=== PATIENT | male | born 1990 | race Caucasian/White ===

== ENCOUNTER 2016-12-24 11:37 | Outpatient (CLI) | payer MEDICAID ==
[~2016-12-24 11:37] MED LIST: ALB4 NEB; AMYL-30 PO; CHOL20005 PO; FLUT1DSK2 IH; LANS30EC3 PO; TOBR28CA IH; [UNRECOGNIZED DRUG - CODE] IH; [UNRECOGNIZED DRUG - CODE] IH; [UNRECOGNIZED DRUG - CODE] PO
== END 2016-12-24 20:01 | disposition home or self-care (01) ==
LOC: MRD 11:37
PROVIDERS: ATTEND Neuromusculoskeletal Medicine, Sports Medicine
DX: S82.141D Displaced bicondylar fracture of right tibia, subsequent encounter for closed fracture with routine healing (principal); M25.461 Effusion, right knee; X58.XXXD Exposure to other specified factors, subsequent encounter
CPT/HCPCS: 73562

== ENCOUNTER 2017-01-22 08:36 | Outpatient (CLI) | payer MEDICAID ==
[~2017-01-22 08:36] MED LIST changes: -CHOL20005 PO; +CHOL200072 PO
== END 2017-01-22 19:52 | disposition home or self-care (01) ==
LOC: MRD 08:36
PROVIDERS: ATTEND Neuromusculoskeletal Medicine, Sports Medicine
DX: S82.54XD Nondisplaced fracture of medial malleolus of right tibia, subsequent encounter for closed fracture with routine healing (principal); M25.461 Effusion, right knee; X58.XXXD Exposure to other specified factors, subsequent encounter
CPT/HCPCS: 73562

== ENCOUNTER 2017-01-29 07:47 | Emergency (ER) | payer MEDICAID ==
[~2017-01-29] VITALS: Ht 175.3 cm; Wt 69.6 kg
[2017-01-29 07:50] VITALS: BP 133/94
--- NOTE | 2017-01-29 07:50 | NUR ---
Patient ambulated to bed 07.
--- NOTE | 2017-01-29 07:50 | NUR ---
bed 11*
--- NOTE | 2017-01-29 08:00 | NUR ---
26M BIB SELF C/O 12/16 "SHARP" NON RADIATING RT FOOT PAIN X 2 DAYS; SWELLING AND ECCHYMOSIS NOTED TO RIGHT FOOT; PT DENIES ANY RECENT INJURY OR FALLS; PT STATES HE "REALLY DOESN'T WHAT HAPPENED...I MAYBE ROLLED ON MY TOES THE WRONG WAY"; CMS AND SKIN INTACT; PT IS AOX4; RR ARE EVEN AND UNLABORED; ER MD AWARE OF PT STATUS; ALL NEEDS MET AT THIS TIME; WILL CONTINUE TO MONITOR
--- NOTE | 2017-01-29 08:03 | NUR ---
Dr. Gonzalez evaluating patient at bedside.
[2017-01-29] MEDS ORDERED: HYDROcodone/APAP 5/325 MG 1 TAB TAB PO ONE (08:10)
[2017-01-29] MEDS ORDERED: IBUPROFEN 400 MG TAB PO ONE (08:10)
--- NOTE | 2017-01-29 08:11 | NUR ---
XRAY BY BEDSIDE
[2017-01-29 09:04] VITALS: BP 128/70
--- NOTE | 2017-01-29 09:04 | NUR ---
Patient discharged with v/s stable. Written and verbal after care instructions given and explained. Patient alert, oriented and verbalized understanding of instructions. Ambulatory with steady gait. All questions addressed prior to discharge. ID band removed. Patient advised to follow up with PMD. Rx of [place] 5 and Naprosyn given. Patient educated on indication of medication including possible reaction and side effects. Opportunity to ask questions provided and answered.
== END 2017-01-29 09:04 | disposition home or self-care (01) ==
LOC: MED 07:47
DX: S92.334A Nondisplaced fracture of third metatarsal bone, right foot, initial encounter for closed fracture (principal); Z79.899 Other long term (current) drug therapy; X58.XXXA Exposure to other specified factors, initial encounter; Y92.89 Other specified places as the place of occurrence of the external cause; Y93.89 Activity, other specified; Y99.8 Other external cause status
CPT/HCPCS: 29515; 73630; 99284

== ENCOUNTER 2017-04-25 09:51 | Outpatient (CLI) | payer MEDICAID | END 2017-04-25 20:39 | disposition home or self-care (01) | LOC: MRD 09:51 | PROVIDERS: ATTEND Neuromusculoskeletal Medicine, Sports Medicine | DX: S92.331D Displaced fracture of third metatarsal bone, right foot, subsequent encounter for fracture with routine healing (principal); X58.XXXD Exposure to other specified factors, subsequent encounter | CPT/HCPCS: 73630 ==

== ENCOUNTER 2018-03-05 13:52 | Emergency (ER) | payer MEDICAID ==
[~2018-03-05] VITALS: Ht 175.3 cm; Wt 68.9 kg
[~2018-03-05 13:52] MED LIST changes: -ALB4 NEB; +ALBU4TAB NEB
[2018-03-05 14:10] VITALS: BP 139/104
[2018-03-05] MEDS: KETOROLAC 60 MG/2 ML VIAL IM ONE (15:51)
[2018-03-05] MEDS: fentaNYL 0.05 MG/ML VIAL IM ONE (16:41)
[2018-03-05 17:00] VITALS: BP 132/80
== END 2018-03-05 17:00 | disposition home or self-care (01) ==
LOC: MED 13:52
DX: J06.9 Acute upper respiratory infection, unspecified (principal); E84.9 Cystic fibrosis, unspecified; Z79.899 Other long term (current) drug therapy
CPT/HCPCS: 71101; 96372; 99283; J1885; J3010

== ENCOUNTER 2018-05-16 19:28 | Emergency (ER) | payer MEDICAID, OTHER ==
[~2018-05-16] VITALS: Ht 175.3 cm; Wt 72.6 kg
[2018-05-16 19:32] VITALS: BP 117/90
--- NOTE | 2018-05-16 19:32 | NUR ---
TO BED # 9 AMBULATORY, REPORT GIVEN TO MARIO IQBAL
[2018-05-16] MEDS ORDERED: NACL 0.9% 1,000 ML IV ONE (19:40)
--- NOTE | 2018-05-16 19:40 | NUR ---
Note undone in EDM - 05/16/18 at 2046 by [facility] 27/M PRESENTS TO ED, C/O LUMP ON R UPPER MID BACK, NOTICED THIS AM, PT REPORTS +SLIGHT TENDERNESS, -REDNESS, -BRUISING. PT REPORTS PRODUCTIVE COUGH, INTERMITTENT HEMOPTYSIS, PLEURITIC CP, X1 WEEK. PT AOX4, GCS 15, SPO2 83% ON RA, PLACED ON O2 4L NC, NOW SPO2 94%, RR 19 EVEN AND UNLABORED. HX CYSTIC FIBROSIS, R LUNG LOBECTOMY, 9 SINUS SURGERIES
--- NOTE | 2018-05-16 19:40 | NUR ---
27/M PRESENTS TO ED, C/O LUMP ON R UPPER MID BACK, NOTICED THIS AM, PT REPORTS +SLIGHT TENDERNESS, -REDNESS, -BRUISING, R LUNG LOBECTOMY SCAR NOTED. PT REPORTS PRODUCTIVE COUGH, INTERMITTENT HEMOPTYSIS, PLEURITIC CP, X1 WEEK. PT AOX4, GCS 15, SPO2 83% ON RA, PLACED ON O2 4L NC, NOW SPO2 94%, RR 19 EVEN AND UNLABORED. HX CYSTIC FIBROSIS, R LUNG LOBECTOMY, 9 SINUS SURGERIES
--- NOTE | 2018-05-16 19:54 | NUR ---
Dr. Venegas evaluating patient at bedside.
[2018-05-16] MEDS ORDERED: ALBUTEROL SULFATE/IPRATROPIU 3 ML SOL IH ONE ×2 (20:00→21:55)
[2018-05-16] MEDS ORDERED: ALBUTEROL 0.083% 2.5 MG/3 ML NEBU INH ONE ×2 (20:00→21:55)
[2018-05-16] MEDS ORDERED: predniSONE 20 MG TAB PO ONE (20:00)
--- NOTE | 2018-05-16 20:05 | NUR ---
dairy technologist at bedside.
--- NOTE | 2018-05-16 20:07 | NUR ---
Breathing treatment administered at bedside by respiratory therapist.
[2018-05-16] MEDS ORDERED: MORPHINE SULFATE 4 MG/ML SYR IVP ONE ×2 (20:20→21:40)
--- NOTE | 2018-05-16 21:08 | NUR ---
Patient returned from CT scan. RN re-evaluating patient at bedside.
--- NOTE | 2018-05-16 21:59 | NUR ---
Secondary breathing treatment administered at bedside by respiratory therapist.
--- NOTE | 2018-05-16 22:17 | NUR ---
Dr. Venegas evaluating patient at bedside.
[2018-05-16 22:45] VITALS: BP 151/87
--- NOTE | 2018-05-16 22:45 | NUR ---
Patient discharged with v/s stable. Written and verbal after care instructions given and explained. Patient alert, oriented and verbalized understanding of instructions. Ambulatory with steady gait. All questions addressed prior to discharge. ID band removed. Patient advised to follow up with PMD. Rx of Prednisone, Bactrim DS, and [place] given. Patient educated on indication of medication including possible reaction and side effects. Opportunity to ask questions provided and answered.
== END 2018-05-16 22:45 | disposition home or self-care (01) ==
LOC: MED 19:28
DX: R22.2 Localized swelling, mass and lump, trunk (principal); J18.9 Pneumonia, unspecified organism; E84.9 Cystic fibrosis, unspecified; Z79.899 Other long term (current) drug therapy
CPT/HCPCS: 71045; 71250; 94640; 96374; 96376; 99284; J2270; J7030; J7512; J7613; J7620; Q0092

== ENCOUNTER 2018-06-18 15:49 | Inpatient (IN) | payer OTHER ==
[~2018-06-18] VITALS: Ht 175.3 cm; Wt 68.9 kg
[2018-06-18 16:03] VITALS: BP 117/75
--- NOTE | 2018-06-18 16:05 | NUR ---
PATIENT PRESENTS TO ED WITH THE CHIEF C/O SOB FOR 8 DAYS. PT IS TACHYCARDIC. KEPT PT ON MONITOR. REPORTED DIFFICULTY BREATHING, SPO2 NOTED 88%. PLACED PT ON O2 AT 2 LTR VIA NC. HOB ELEVATED. + DRY COUGH. LUNGS CLEAR. DENIES N/V/D. SKIN IS PINK/WARM/DRY. AAOX4 WITH EVEN AND STEADY GAIT. HR EVEN AND REGULAR. PT REPORTS FEVER 3 DAYS AGO, TOOK IBUPROFEN. AFEBRILE AT THIS TIME. PATIENT STATES GENERALIZED PAIN OF 8/10 AT THIS TIME. VSS. PATIENT POSITIONED FOR COMFORT. BEDRAILS UP X2. BED DOWN. ER MD MADE AWARE OF PT STATUS.
--- NOTE | 2018-06-18 16:05 | NUR ---
PATIENT AMBULATED TO BED 2.
[2018-06-18] MEDS ORDERED: ALBUTEROL 0.083% 2.5 MG/3 ML NEBU INH ONE (16:20)
[2018-06-18] MEDS ORDERED: IPRATROPIUM 0.02% 0.5 MG/2.5 ML NEBU INH ONE (16:20)
[2018-06-18] MEDS ORDERED: NACL 0.9% 500 ML IV SCH (16:20)
[2018-06-18] MEDS ORDERED: NACL 0.9% 500 ML IV ONE (16:45)
[2018-06-18 16:49] LABS: BASOPHILS % (AUTO) 0.3 % (0.0-2.0); EOSINOPHILS # (AUTO) 0.7 K/uL (0-0.4); HEMATOCRIT 35.7 % (36-52); HEMOGLOBIN 11.7 g/dL (12.0-18.0); LYMPHOCYTES # (AUTO) 1.6 K/uL (2.0-11.5); LYMPHOCYTES % (AUTO) 12.8 % (20.5-51.1); MEAN CORPUSCULAR HEMOGLOBIN 27 pg (27-31); MEAN CORPUSCULAR HGB CONC 33 g/dL (33-37); MEAN CORPUSCULAR VOLUME 83.7 fL (80-94); MONOCYTES # (AUTO) 1.1 K/uL (0.8-1.0); NEUTROPHILS # (AUTO) 8.9 K/uL (1.8-7.7); NEUTROPHILS % (AUTO) 71.9 % (42.2-75.2); PLATELET COUNT (AUTO) 367 K/uL (140-450); RED BLOOD CELL COUNT(AUTO) 4.27 MIL/uL (4.20-6.10); RED CELL DISTRIBUTION WIDTH 13.9 % (11.6-13.7); WHITE BLOOD COUNT (AUTO) 12.4 K/uL (4.8-10.8)
[2018-06-18 17:09] LABS: APPEARANCE,URINE CLEAR (CLEAR); BILIRUBIN,URINE NEGATIVE (NEGATIVE); BLOOD, URINE NEGATIVE (NEGATIVE); COLOR,URINE YELLOW (YELLOW); LEUKOCYTE ESTERASE ,URINE NEGATIVE (NEGATIVE); NITRITE, URINE NEGATIVE (NEGATIVE); PH,URINE 6.5 (5.0-9.0); UGLUCOSE 3+ (NEGATIVE)
[2018-06-18 17:12] LABS: CARBON DIOXIDE 29.5 mmol/L (21-32); CREATININE 1.1 mg/dL (0.7-1.3); POTASSIUM 3.5 mmol/L (3.5-5.1); TOTAL BILIRUBIN 0.4 mg/dL (0.0-1.0)
[2018-06-18] MEDS ORDERED: KETOROLAC 30 MG/ML VIAL IVP ONE (17:20)
[2018-06-18 17:48] LABS: PROTHROMBIN TIME 9.9 secs (10.8-13.4)
--- NOTE | 2018-06-18 17:54 | NUR ---
BLOOD DRAWN FOR ABG.
[2018-06-18] MEDS ORDERED: ONDANSETRON 4 MG/2 ML VIAL IVP ONE (18:15)
[2018-06-18] MEDS ORDERED: NACL 0.9% 1,000 ML IV ONE (18:15)
[2018-06-18] MEDS ORDERED: MORPHINE SULFATE 4 MG/ML SYR IVP ONE (18:15)
[2018-06-18] MEDS: NACL 0.9% 1,000 ML IV SCH (18:22)
[2018-06-18] MEDS ORDERED: PIPERACILLIN/TAZOBACTAM 3.375 GM in DEXTROSE 5% 50 ML IV ONE (18:25)
[2018-06-18] MEDS ORDERED: ZOLPIDEM 5 MG TAB PO PRN (18:25)
[2018-06-18] MEDS ORDERED: INSULIN REGULAR, HUMAN 100 UNIT/ML VIAL SUBQ ONE (18:25)
[2018-06-18] MEDS ORDERED: HYDROcodone/APAP 5/325 MG 1 TAB TAB PO PRN (18:25)
[2018-06-18] MEDS ORDERED: ACETAMINOPHEN 325 MG TAB PO PRN (18:25)
[2018-06-18] MEDS ORDERED: INSULIN REGULAR, HUMAN 100 UNIT in NACL 0.9% 100 ML IV SCH ×2 (18:25)
[2018-06-18] MEDS ORDERED: MAG SULF 2000 MG/WATER PREMIX 50 ML IV PRN (18:25)
[2018-06-18] MEDS ORDERED: ONDANSETRON 4 MG/2 ML VIAL IVP PRN (18:25)
[2018-06-18] MEDS ORDERED: KCL 20 MEQ/WATER INJ PREMIX 200 ML IV PRN (18:25)
[2018-06-18] MEDS: BLOOD GLUCOSE MONITORING 1 DEV DEV FS SCH ×6 (18:25→23:32)
[2018-06-18] MEDS ORDERED: QUET100T PO (18:34)
[2018-06-18] MEDS ORDERED: AZIT250T4 PO (18:34)
[2018-06-18] MEDS ORDERED: FLUT1POW3 IH (18:34)
[2018-06-18] MEDS ORDERED: GABA400C PO (18:34)
[2018-06-18] MEDS ORDERED: PIPERACILLIN/TAZOBACTAM 3.375 GM VIAL IV ONE (18:47)
[2018-06-18 18:55] VITALS: BP 121/78
--- NOTE | 2018-06-18 18:55 | NUR ---
ADMITTED FROM ER THIS 27 YR OLD WHITE MALE PER [facility]. BY ER NURSES WITH CC OF WEAKNESS, FREQ. URINATION, THIRST AND PROBLEMS WITH HIS VISION. AWAKE,ALERT AND ORIENTED. IV 0.9 NS BOLUS INFUSING VIA RT AC IV SITE. G 20. BURNS WELL. HAND GRASPS EQUAL. DENIES ANY SOB. 02 AT 2 L/MIN/NC. PLACED ON MEN'S GOLF COACH, ST HR 112/MIN. WITHOUT ECTOPICS.
--- NOTE | 2018-06-18 18:59 | NUR ---
PT TRANSFERRED TO ICU BED 5 VIA GURNEY ON STABLE CONDITION. BELONGINGS TAKEN WITH PT. REPORT GIVEN TO JANUSZ.
--- NOTE | 2018-06-18 19:30 | NUR ---
RECEIVED BEDSIDE REPORT FROM MORNING NURSE. PATIENT AAO X 4, NO FEVER. NO ACUTE DISTRESS NOTED. BILATERAL LUNGS SOUND WHEEZING WITH NON PRODUCTIVE INTERMITTENT COUGH NOTED. SR ON THE MONITOR WITH HR 109 NOTED. ACTIVE BOWEL SOUND FROM ALL 4QUADS. PERIPHERAL LINE TO LEFT AC 20G WITH NS 80ML/HR AND INTACT AND PATENT. SKIN IS WARM TO TOUCH WITH INTACT. HOB ELEVATED, BED IN LOW POSITION. CALL LIGHT WITHIN REACH. WILL CONTINUE TO MONITOR.
--- NOTE | 2018-06-18 19:32 | NUR ---
REPORT GIVEN TO [facility] RN FOR CONTINUITY OF CARE.
[2018-06-18 20:00] VITALS: BP 125/82
--- NOTE | 2018-06-18 20:00 | NUR ---
STARTED INSULIN DRIP ORDERED, BS [address] MCCABE AND RECEIVED ORDER TO INCREASE INSULIN TO 8UNITS/HR AND CARRIED OUT. WILL CONTINUE TO MONITOR.
[2018-06-18] MEDS ORDERED: ALBUTEROL SULFATE/IPRATROPIU 3 ML SOL IH ONE (20:38)
[2018-06-18] MEDS ORDERED: ALBUTEROL 0.083% 2.5 MG/3 ML NEBU INH PRN (20:45)
[2018-06-18] MEDS ORDERED: DORNASE ALFA 2.5 MG IH SCH (21:00)
[2018-06-18] MEDS: CHOLECALCIFEROL 1,000 IU TAB PO SCH (21:00)
[2018-06-18] MEDS ORDERED: NON-FORMULARY ITEM (Cholecalciferol (Vitamin D3) (Vitamin D3) 2,000 IU) PO SCH (21:00)
[2018-06-18] MEDS ORDERED: [UNRECOGNIZED DRUG - MIXTURE] PO SCH (21:00)
--- NOTE | 2018-06-18 21:00 | NUR ---
SPOKE WITH AND RECEIVED BREATHING TREATMENT AND MORPHINE FOR PAIN ORDERS. NO ACUTE DISTRESS NOTED. WILL CONTINUE TO MONITOR.
[2018-06-18 21:01] LABS: ANION GAP 12.2 (8-16); CARBON DIOXIDE 33.2 mmol/L (21-32); CREATININE 1.1 mg/dL (0.7-1.3); POTASSIUM 3.4 mmol/L (3.5-5.1)
[2018-06-18 21:05] LABS: MAGNESIUM 1.6 mg/dL (1.8-2.4); PHOSPHORUS 2.4 mg/dL (2.5-4.9)
[2018-06-18] MEDS: ALBUTEROL SULFATE/IPRATROPIU 3 ML SOL IH PRN (21:21)
[2018-06-18] MEDS: MORPHINE SULFATE 2 MG/ML SYR IVP PRN (21:36)
[2018-06-18] MEDS: LANSOPRAZOLE 30 MG CAPDR PO SCH (21:36)
[2018-06-18 22:00] VITALS: BP 133/93
[2018-06-19] VITALS (10 sets, daily range): BP systolic 105–128; BP diastolic 60–83
--- NOTE | 2018-06-19 | NUR ---
PATIENT IN ASLEEP, AROUSABLE TO VOICE. NO ACUTE DISTRESS NOTED. INTERMITTENT COUGHING NOTED. DENIES PAIN AT THIS TIME. WILL CONTINUE TO MONITOR.
[2018-06-19] MEDS: ALBUTEROL SULFATE/IPRATROPIU 3 ML SOL IH PRN ×3 (00:10→20:09)
[2018-06-19 00:27] LABS: ANION GAP 13.8 (8-16); CARBON DIOXIDE 30.2 mmol/L (21-32); CREATININE 0.8 mg/dL (0.7-1.3)
[2018-06-19] MEDS: BLOOD GLUCOSE MONITORING 1 DEV DEV FS SCH ×18 (00:28→21:05)
[2018-06-19] MEDS: PIPER/TAZO 3.375GM/D5W PREMIX 50 ML IV SCH ×5 (00:28→23:22)
[2018-06-19 00:30] LABS: MAGNESIUM 1.6 mg/dL (1.8-2.4); PHOSPHORUS 2.3 mg/dL (2.5-4.9)
[2018-06-19] MEDS: MORPHINE SULFATE 2 MG/ML SYR IVP PRN ×6 (01:51→22:08)
--- NOTE | 2018-06-19 02:30 | NUR ---
NO ACUTE DISTRESS NOTED. PATIENT IN ASLEEP. ST ON THE MONITOR WITH 100'S. DENIES PAIN. WILL CONTINUE TO MONITOR.
--- NOTE | 2018-06-19 05:00 | NUR ---
PATIENT IN ASLEEP, AROUSABLE TO VOICE. NO ACUTE DISTRESS. DENIES PAIN. SR WITH HR 99 NOTED. ON INSULIN DRIP WITH 2UNITS/HR AND NS 80ML.HR. WILL CONTINUE TO MONITOR.
[2018-06-19 05:45] LABS: ALBUMIN 2.5 g/dL (3.4-5.0); ANION GAP 10.6 (8-16); CARBON DIOXIDE 33.3 mmol/L (21-32); CREATININE 0.8 mg/dL (0.7-1.3); MAGNESIUM 1.3 mg/dL (1.8-2.4); TOTAL BILIRUBIN 0.2 mg/dL (0.0-1.0)
[2018-06-19 06:40] LABS: BASOPHILS # (AUTO) 0.1 K/uL (0.00-0.22); BASOPHILS % (AUTO) 0.5 % (0.0-2.0); EOSINOPHILS # (AUTO) 1.1 K/uL (0-0.4); HEMATOCRIT 32.6 % (36-52); HEMOGLOBIN 10.8 g/dL (12.0-18.0); LYMPHOCYTES # (AUTO) 2.2 K/uL (2.0-11.5); LYMPHOCYTES % (AUTO) 17.6 % (20.5-51.1); MEAN CORPUSCULAR HEMOGLOBIN 28 pg (27-31); MEAN CORPUSCULAR HGB CONC 33 g/dL (33-37); MONOCYTES # (AUTO) 1.2 K/uL (0.8-1.0); MONOCYTES % (AUTO) 9.6 % (1.7-9.3); NEUTROPHILS # (AUTO) 7.7 K/uL (1.8-7.7); NEUTROPHILS % (AUTO) 63.3 % (42.2-75.2); PLATELET COUNT (AUTO) 371 K/uL (140-450); RED BLOOD CELL COUNT(AUTO) 3.93 MIL/uL (4.20-6.10); WHITE BLOOD COUNT (AUTO) 12.2 K/uL (4.8-10.8)
[2018-06-19 06:50] LABS: POTASSIUM 2.9 mmol/L (3.5-5.1)
[2018-06-19] MEDS: BUDESONIDE 0.5 MG/2 ML NEBU INH SCH ×2 (07:08→20:24)
[2018-06-19] MEDS ORDERED: LIPASE PO SCH (07:30)
[2018-06-19] MEDS ORDERED: PROTEASE PO SCH (07:30)
[2018-06-19] MEDS ORDERED: AMYLASE PO SCH (07:30)
--- NOTE | 2018-06-19 07:30 | NUR ---
OBTAINED REPORT FROM NURSE RN BSN RN AT BEDSIDE, PT IS AAOX4, ABLE TO FOLLOW COMMANDS AND MAKE NEEDS KNOWN, VSS, C/O LOWER BACK PAIN 5/10, TOLERABLE, NO S/S OF DISTRESS, CRACKLES LUNG SOUNDS ROHAN. ON O2 AT 2L VIA NC, O2 94%, DENIES CHEST PAIN, ST ON SECURITY ASSISTANT, SOFT ABDOMEN WITH ACTIVE BOWEL SOUNDS, CONTINENT WITH B&B, SKIN IS WARM AND DRY TO TOUCH, ABLE TO MOVE ALL EXTREMITIES, IV TO LEFT FOREARM 20GA, RUNNING NS AT 80ML/HR. HOB ELEVATED TO 30 DEGREES, POSITION CHANGED FOR COMFORT, CALL LIGHT WITHIN REACH, SAFETY MEASURES IN PLACE, WILL CONTINUE TO MONITOR.
[2018-06-19] MEDS ORDERED: SODIUM PHOSPHATE 15 MMOLE in NACL 0.9% 250 ML IV PRN (07:50)
--- NOTE | 2018-06-19 08:13 | NUR ---
PATIENT HAS BEEN SCREENED AND CATEGORIZED HIGH NUTRITION RISK. PATIENT WILL BE SEEN WITHIN 1-2 DAYS OF ADMISSION. 06/19/18-06/20/[address]
[2018-06-19] MEDS: CHOLECALCIFEROL 1,000 IU TAB PO SCH ×2 (08:17→20:34)
[2018-06-19] MEDS: AMYLASE/LIPASE/PROTEASE 1 CAPDR PO SCH ×3 (08:17→16:38)
[2018-06-19] MEDS: DOCUSATE SODIUM 100 MG GELCAP PO SCH (08:17)
[2018-06-19] MEDS: LANSOPRAZOLE 30 MG CAPDR PO SCH ×2 (08:18→20:34)
[2018-06-19] MEDS: NACL 0.9% 1,000 ML IV SCH ×2 (08:20→19:22)
--- NOTE | 2018-06-19 09:00 | NUR ---
SCHEDULED MEDICATION GIVEN, PT TOLERATED WELL.
--- NOTE | 2018-06-19 10:00 | NUR ---
NO CHANGE OF CONDITION AT THIS TIME, VSS, C/O LOWER BACK PAIN, WILL MEDICATED.
[2018-06-19] MEDS: LEVOFLOXACIN 750 MG/D5W PREMIX 150 ML IV SCH (10:03)
[2018-06-19 10:14] LABS: ANION GAP 11.3 (8-16); CARBON DIOXIDE 30.8 mmol/L (21-32); CREATININE 0.7 mg/dL (0.7-1.3); POTASSIUM 3.1 mmol/L (3.5-5.1)
--- NOTE | 2018-06-19 10:30 | NUR ---
SPUTUM COLLECTED, AND INFULENZA A&B COLLECTED, SENT TO LAB.
--- NOTE | 2018-06-19 11:30 | NUR ---
PAGED DR. MAHONEY, PT STATED WOULD LIKE TO TRANSFER TO [facility] DUE TO ALL HIS MEDICAL RECORDS WAS IN THERE, AND GAVE US A NUMBER TO CALL FOR HIS HISTORY [phone]. DR. MAHONEY CALLED BACK AND STATED WILL BE HERE TALK TO THE PT.
--- NOTE | 2018-06-19 12:00 | NUR ---
PT IS RESTING IN BED, NO S/S OF DISTRESS, VSS, DENIES PAIN.
--- NOTE | 2018-06-19 12:25 | NUR ---
DR. GRIGSBY CAME IN TO SEE PT AT BEDSIDE, WILL FOLLOW UP WITH NEW ORDERS. Addendum: 06/19/18 at 1253 by Theodore Holcomb RN NOT DR. GRIGSBY, IT IS DR. MILLS.
--- NOTE | 2018-06-19 12:30 | NUR ---
DR. RAMOS CAME IN TO SEE PT AT BEDSIDE, WILL FOLLOW UP WITH NEW ORDERS.
[2018-06-19 13:18] LABS: MAGNESIUM 1.4 mg/dL (1.8-2.4); PHOSPHORUS 3.5 mg/dL (2.5-4.9)
[2018-06-19] MEDS ORDERED: POTASSIUM PHOSPHATE 15 MM in NACL 0.9% 250 ML IV SCH (14:00)
--- NOTE | 2018-06-19 14:19 | NUR ---
DR. MAHONEY CAME IN TO SEE PT AT BEDSIDE, SPOKE WITH PT REGARDING TRANSFER, WILL FOLLOW UP.
--- NOTE | 2018-06-19 14:19 | NUR ---
06/19/18 RD INITIAL ASSESSMENT COMPLETED PLEASE REFER TO NUTRITION ASSESSMENT UNDER CARE ACTIVITY FOR ESTIMATED NUTRITIONAL NEEDS. 1. RECOMMEND A REGULAR DIET TOLERATED 2. RD PROVIDED NUTRITION EDUCATION FOR HYPERGLYCEMIA WITH CF 3. RECOMMEND ENSURE MAX TID 4. RD TO FOLLOW-UP 3-5 DAYS, MODERATE RISK SALOMÓN CORDERO, RD
[2018-06-19] MEDS ORDERED: INSULIN LANTUS 100 UNITS/ML 10 ML VIAL SUBQ SCH (14:35)
--- NOTE | 2018-06-19 14:40 | NUR ---
PER DR. MAHONEY, REQUEST CASE MANAGEMENT TO AR[place] [facility] [place] TO CONTINUE ZOSYN AND LEVAQUIN. ORDER TRANSCRIBED AND CARRIED OUT. QUILT MAKER JANUSZ MADE AWARE.
--- NOTE | 2018-06-19 15:02 | NUR ---
CM NOTE RECEIVED ORDER TO TRANSFER TO [facility]. FAXED THE ORDER TO TRANSFER TO [facility] TO [facility]. PER LAUREN OF [facility] PH# [phone], SHE WILL CONSULT WITH HER DRUPAL PROGRAMMER FIRST IF THEY WILL AUTHORIZE THIS TRANSFER BUT TO GO AHEAD AND SEND A PACKET TO THE [facility] AT THIS TIME. FAXED SS ORDER TO TRANSFER TO [facility] AND CLINICAL PACKET INCLUDING THE NUMBER TO THE ATTENDING PHYSICIAN AND THE NURSING STATION WHERE PATIENT IS TO THE [facility] TRANSFER UNIT [phone] PH# [phone]. ICU NURSE TELMA ESPANA.
[2018-06-19] MEDS ORDERED: DEXTROSE 50% 50 ML SYR IVP PRN (16:00)
--- NOTE | 2018-06-19 16:00 | NUR ---
PT IS RESTING IN BED, NO S/S OF DISTRESS, VSS, C/O PAIN TO LOWER BACK, TOLERABLE.
--- NOTE | 2018-06-19 16:17 | NUR ---
CALLED [facility] TO FOLLOW UP TRANSFER. PER [facility] LAUREN PH# [phone], SHE'S WITH ANOTHER CALL WITH THE HOSPITAL. SHE WILL CALL BACK FOR TRANSFER UPDATE.
--- NOTE | 2018-06-19 16:30 | NUR ---
PER DAO, [facility] DENIED TRANSFER TO [facility]. PATIENT MADE AWARE.
[2018-06-19] MEDS: INSULIN LISPRO SLIDING SCALE 100 UNITS/ML VIAL SUBQ PRN ×2 (16:41→21:03)
--- NOTE | 2018-06-19 16:45 | NUR ---
SALOMÓN, CAMP NURSE FROM [facility] CALLED, SHE STATED THAT THEY ARE WILLING TO ACCEPT PATIENT. SHE ALSO STATED THAT SHE WILL HAVE THE ADMISSION PHYSICIAN CONTACT DR. MAHONEY. I INFORMED HER THAT [facility] DENIED THE TRANSFER. SHE STATED SHE WILL CALL AJNUSZ PIPELINE EXECUTIVE IN THE MORNING TO DISCUSS THE MATTER. SHE PROVIDED ME WITH CONTACT NUMBER [phone] IN CASE ANYTHING CHANGES.
--- NOTE | 2018-06-19 18:50 | NUR ---
Pt received from ICU via Array Storm. Able to amb from gurney to bed with steady gait. Received report from [facility] ICU nurse. Pt aaox4, no c/o discomfort. Right forearm IV intact with ongoing NS @ 80ml/hr & potassium @ 42.5ml/hr. Pt oriented to room & unit. Verbalized understanding. Call light within reach.
--- NOTE | 2018-06-19 18:50 | NUR ---
TRANSFERRED PT TO TELEMETRY ROOM 105A VIA WHEELCHAIR WITHOUT INCIDENT, ALL BELONGS GOES WITH PT, REPORT GIVEN TO RASHEED ANNE AT BEDSIDE, PT IS IN STABLE CONDITION AT THIS TIME.
--- NOTE | 2018-06-19 19:30 | NUR ---
RECEIVED BEDSIDE REPORT FROM DAY SHIFT NURSE FOR CONTINUITY OF CARE. PATIENT IS AWAKE, ALERT, AND COOPERATIVE. RESPIRATION EVEN UNLABORED ON ROOM AIR. SKIN IS WARM AND DRY. IV PATENT AND INTACT. PLAN OF CARE WAS DISCUSSED. ALL SAFETY MEASURES ARE IN PLACE. PLACED PATIENT IN SEMI-TIM, CALL LIGHT WITHIN REACH AND PATIENT VERBALIZES ITS USE. BED IS AT LOW POSITION. WILL CONTINUE TO MONITOR.
--- NOTE | 2018-06-19 19:30 | NUR ---
Report given to pm nurse Kisses.
[2018-06-19] MEDS: ACETYLCYSTEINE 10% (100 MG/ML) 100 MG/ML VIAL INH SCH (20:10)
--- NOTE | 2018-06-19 20:30 | NUR ---
INITIAL ASSESSMENT DONE. VITALS WERE TAKEN. PATIENT CONDITION STABLE. ALL DUE MEDS WERE GIVEN PER ORDER. NO ASE NOTED. PATIENT REFUSED HEPARIN. EDUCATED THE RISK AND BENEFITS OF IT X3 STILL REFUSED. CALL LIGHT WITHIN REACH. WILL CONTINUE TO MONITOR.
[2018-06-19] MEDS ORDERED: OSELTAMIVIR PHOSPHATE 75 MG CAP PO SCH (21:00)
--- NOTE | 2018-06-19 22:05 | NUR ---
PATIENT COMPLAINED OF 8/10 PAIN. PRN PAIN MEDS ADMINISTERED PER ORDER. WILL CONTINUE TO MONITOR.
--- NOTE | 2018-06-19 23:10 | NUR ---
REASSESSED PATIENT PAIN. PATIENT STATED 05/18. NO DISTRESS NOTED. WILL CONTINUE TO MONITOR
[2018-06-20] VITALS: BP 106/60
--- NOTE | 2018-06-20 | NUR ---
VITALS WERE TAKEN. PATIENT HR 118. PATIENT DENIES PAIN. WILL CONTINUE TO MONITOR.
[2018-06-20] MEDS: ACETYLCYSTEINE 10% (100 MG/ML) 100 MG/ML VIAL INH SCH ×2 (01:00→20:29)
--- NOTE | 2018-06-20 02:10 | NUR ---
CHECKED PATIENT. PATIENT SLEEPING RESPIRATION EVEN UNLABORED ON ROOM. NO DISTRESS NOTED. WILL CONTINUE TO MONITOR.
[2018-06-20] MEDS: MORPHINE SULFATE 2 MG/ML SYR IVP PRN ×4 (02:16→14:43)
[2018-06-20 04:00] VITALS: BP 108/64
--- NOTE | 2018-06-20 04:10 | NUR ---
CHECKED PATIENT. VITALS WERE TAKEN. PATIENT BEEN TACHYCARDIC THROUGHOUT SHIFT. DENIES PAIN AND NO DISTRESS NOTED. WILL CONTINUE TO MONITOR.
[2018-06-20] MEDS: PIPER/TAZO 3.375GM/D5W PREMIX 50 ML IV SCH ×2 (05:35→14:43)
--- NOTE | 2018-06-20 06:20 | NUR ---
PATIENT COMPLAINED OF PAIN 9/. PRN PAIN MEDS ADMINISTERED. WILL CONTINUE TO MONITOR
[2018-06-20] MEDS: AMYLASE/LIPASE/PROTEASE 1 CAPDR PO SCH ×3 (06:29→16:32)
[2018-06-20] MEDS: BLOOD GLUCOSE MONITORING 1 DEV DEV FS SCH ×3 (06:29→16:33)
[2018-06-20] MEDS: INSULIN LISPRO SLIDING SCALE 100 UNITS/ML VIAL SUBQ PRN ×2 (06:32→09:20)
[2018-06-20 06:59] LABS: ALBUMIN 2.4 g/dL (3.4-5.0); CARBON DIOXIDE 27.3 mmol/L (21-32); CREATININE 0.8 mg/dL (0.7-1.3); MAGNESIUM 1.5 mg/dL (1.8-2.4); POTASSIUM 3.3 mmol/L (3.5-5.1); TOTAL BILIRUBIN 0.2 mg/dL (0.0-1.0)
[2018-06-20 07:03] LABS: BASOPHILS % (AUTO) 0.5 % (0.0-2.0); EOSINOPHILS # (AUTO) 0.7 K/uL (0-0.4); EOSINOPHILS % (AUTO) 6.4 % (0.0-4.0); HEMOGLOBIN 11.7 g/dL (12.0-18.0); LYMPHOCYTES # (AUTO) 1.6 K/uL (2.0-11.5); LYMPHOCYTES % (AUTO) 15.4 % (20.5-51.1); MEAN CORPUSCULAR HEMOGLOBIN 27 pg (27-31); MEAN CORPUSCULAR HGB CONC 33 g/dL (33-37); MONOCYTES # (AUTO) 1.1 K/uL (0.8-1.0); MONOCYTES % (AUTO) 10.9 % (1.7-9.3); NEUTROPHILS # (AUTO) 7.1 K/uL (1.8-7.7); NEUTROPHILS % (AUTO) 66.8 % (42.2-75.2); PLATELET COUNT (AUTO) 375 K/uL (140-450); RED BLOOD CELL COUNT(AUTO) 4.28 MIL/uL (4.20-6.10); RED CELL DISTRIBUTION WIDTH 14.1 % (11.6-13.7); WHITE BLOOD COUNT (AUTO) 10.6 K/uL (4.8-10.8)
--- NOTE | 2018-06-20 07:27 | NUR ---
ENDORSED PATIENT TO DAY SHIFT NURSE FOR CONTINUITY OF CARE. PATIENT STABLE AT THIS TIME.
[2018-06-20] MEDS: BUDESONIDE 0.5 MG/2 ML NEBU INH SCH ×2 (07:28→19:30)
--- NOTE | 2018-06-20 07:28 | NUR ---
RECEIVED BEDSIDE REPORT FROM MATERIAL STOCKKEEPER YARD NURSE. PATIENT IS AOX4, AND COOPERATIVE. ABLE TO FOLLOW COMMANDS AND MAKE NEEDS KNOWN. RESPIRATION EVEN UNLABORED ON ROOM AIR. NO SIGNS OF DISTRESS NOTED. SKIN IS WARM AND DRY. IV PATENT AND INTACT, INFUSING PER MD ORDER. PATIENT IS ABLE TO AMBULATE WITH STANDBY ASSISTANCE. URANAL IS AT BEDSIDE. PLAN OF CARE WAS DISCUSSED AND PT VERBALIZED UNDERSTANDING. ALL SAFETY MEASURES ARE IN PLACE. INSTRUCTED PT TO USE THE CALL LIGHT FOR ANY ASSISTANCE AND PT AWARE. CALL LIGHT WITHIN REACH. TWO SIDE RAILS ARE UP. BED IS AT LOW POSITION.
[2018-06-20] MEDS: ALBUTEROL SULFATE/IPRATROPIU 3 ML SOL IH PRN (07:29)
[2018-06-20] MEDS: DOCUSATE SODIUM 100 MG GELCAP PO SCH (07:29)
--- NOTE | 2018-06-20 07:40 | NUR ---
RECEIVED A CRITICAL LAB VALUE FOR GLUCOSE 437. PAGED DR MAHONEY.
--- NOTE | 2018-06-20 07:50 | NUR ---
RECEIVED A CALL BACK FROM DR MAHONEY. RECEIVED TELEPHONE ORDER FOR 20 UNITS SUBQ LANTUS,18 UNITS FOR HUMALOG, POTASSIUM CHLORIDE 40 MEQ PO, AND MAG OXIDE 400MG TAB PO. RECEIVED AND CONFIRMED ORDER WITH DR MAHONEY.
[2018-06-20 08:00] VITALS: BP_SYST 106; BP_SYST 107; BP_DIAS 56; BP_DIAS 71
--- NOTE | 2018-06-20 08:39 | NUR ---
LATE ENTRY FOR 06/19/18 1621 RECEIVED CALL FROM LAUREN BUENROSTRO [facility]. PER LAUREN [facility] IS NOT A CONTRACTED FACILITY AND IF PATIENT DOES HAVE A NEED FOR HIGHER LEVEL OF CARE [facility] IS THE CONTRACTED FACILITY FOR TERTIARY CARE. 1630 CALLED JANUSZ IQBAL IN ICU AND INFORMED HER THAT [facility] DENIED TRANSFER TO [facility] BUT [facility] IS CONTRACTED FOR TERTIARY CARE IF THE PHYSICIAN DEEMS THAT PATIENT REQUIRES HIGHER LEVEL OF CARE.
--- NOTE | 2018-06-20 08:43 | NUR ---
DR KATZ IS TALKING TO PATIENT AT BEDSIDE. NO SIGNS OF DISTRESS NOTED.
[2018-06-20] MEDS: CHOLECALCIFEROL 1,000 IU TAB PO SCH (08:55)
[2018-06-20] MEDS: LANSOPRAZOLE 30 MG CAPDR PO SCH (08:55)
[2018-06-20] MEDS ORDERED: POTASSIUM CHLORIDE 10 MEQ TABER PO SCH (09:00)
[2018-06-20] MEDS ORDERED: INSULIN LANTUS 100 UNITS/ML 10 ML VIAL SUBQ SCH ×3 (09:00)
[2018-06-20] MEDS ORDERED: MAGNESIUM OXIDE 400 MG TAB PO SCH (09:00)
[2018-06-20] MEDS: NACL 0.9% 1,000 ML IV SCH (09:05)
--- NOTE | 2018-06-20 09:17 | NUR ---
PT REF MUCOMYST AT
[2018-06-20] MEDS: LEVOFLOXACIN 750 MG/D5W PREMIX 150 ML IV SCH (10:28)
--- NOTE | 2018-06-20 10:28 | NUR ---
PT COMPLAINED OF 8/10 PAIN. ADMINISTERED PRN MORPHINE.
[2018-06-20] MEDS ORDERED: MAG SULF 2000 MG/WATER PREMIX 50 ML IV SCH (10:30)
--- NOTE | 2018-06-20 11:59 | NUR ---
MALI SPOKE WITH THE PATIENT BEDSIDE AND INFORMED HIM THAT PER HIS INSURANCE , [facility] LAUREN [facility] IS NOT A CONTRACTED FACILITY AND IF PATIENT DOES HAVE A NEED FOR HIGHER LEVEL OF CARE [facility] IS THE CONTRACTED FACILITY FOR TERTIARY CARE. THERE IS NO DOCTOR'S ORDER FOR TRANSFER FOR HIGHER LEVEL OF CARE AT THIS TIME. THE PATIENT WAS INSISTING THAT HE WANTS TO BE TRANSFERRED TO [facility] BECAUSE HE WAS PREVIOUSLY ADMITTED THERE BEFORE. I ATTEMPTED TO EXPLAIN TO HIM AGAIN THAT [facility] IS NOT A CONTRACTED FACILITY PER HIS INSURANCE SO [facility] HAS DENIED THE TRANSFER TO [facility] BUT HE INTERRUPTED ME, HE RAISED HIS VOICE STATING THAT HE DID NOT ENROLL TO [facility] INSURANCE AND HE DOES NOT KNOW WHO ENROLLED HIM. I INFORMED HIM THAT IF HE HAS OTHER CONCERNS REGARDING HIS INSURANCE OR WANTS TO DISENROLL FROM [facility] TO CALL [facility]. HE SAID HE HAS A CHENTE FULTON AT [facility]# [phone] AND REQUESTED ME TO CALL HER. WHEN I ASKED HIM WHY HE WANTED ME TO CONTACT HER HE RESPONDED "IT'S YOUR JOB TO CALL HER". I REMINDED HIM TRANSFERS TO OTHER HOSPITALS NEED TO BE COORDINATED WITH THE ASSISTANT STORE DIRECTOR FROM INSURANCE. I ATTEMPTED TO CALL BUT THE ANSWERING MACHINE SAYS IT IS THE RADIOLOGY READING RM AT [facility]. I INFORMED THE PATIENT OF THIS AND I GAVE HIM THE NUMBER TO OUR CASE MANAGEMENT DEPARTMENT IF HE WANTS TO GIVE IT TO CHENTE FULTON. [facility] ESPANA.
[2018-06-20 12:00] VITALS: BP 106/71
--- NOTE | 2018-06-20 12:15 | NUR ---
PT IS EATING DINNER ON BED. DENIES PAIN. COUGHED A FEW TIMES. NO SIGN OF DISTRESS NOTED. Addendum: 06/20/18 at 2033 by Yesenia Harrison RN LUNCH
--- NOTE | 2018-06-20 13:17 | NUR ---
1220 MET WITH PATIENT AT BEDSIDE. PER PATIENT HE STILL WANTS TO TRANSFER TO [facility] WHERE HE HAS RECEIVED HIS TREATMENT FOR CF FOR MANY YEARS AND THEY KNOW HIS CONDITION WELL. STATED THAT HE DID NOT ENROLL INTO IE AND THAT HE WAS NEVER GIVEN AN OPTION. PATIENT VERBALIZED HIS CONCERN THAT HE IS NOT RECEIVING ONE OF HIS NEEDED MEDICATION THE HOSPITAL DOES NOT STOCK IT. PATIENT IS VERY ANXIOUS AND INSISTING UPON TRANSFER. INFORMED HIM THAT I WOULD CONTACT [facility] AGAIN FOR RECONSIDERATION ON THE TRANSFER TO [facility]. ALVIN GHOTRA HAD RECEIVED A CALL FROM KIRSTIN ELDRIDGE AT [facility] CF UNIT AND TRANSFERRED TO [facility]. 1229 SPOKE WITH KIRSTIN ELDRIDGE [phone] AND FÁTIMA MOLINA RN FOR CF UNIT [phone] ON SPEAKER. THEY PROVIDED INFORMATION THAT THE [facility] CF UNIT FOR ADULTS HAD CLOSED AND THEY ONLY HAVE A CF UNIT FOR PEDIATRICS. THEY PROVIDED SOME BACKGROUND ON PATIENT AND THAT HE HAS BEEN A PATIENT AT THE UNIT FOR MANY YEARS AND AT THIS TIME HIS CONDITION HAS HAD SOME DECLINE AND THAT PATIENT DOES BECOME VERY ANXIOUS AND THAT HE HAD BEEN CALLING THE UNIT FREQUENTLY AND VOICING CONCERNS THAT HE NEEDS THE EXPERTISE OF THE CF UNIT. 1300 CALLED LAUREN BUENROSTRO FOR [facility] AND INFORMED HER THAT PATIENT IS STILL INSISTING ON TRANSFER TO [facility] AND ALSO INFORMED HER THAT PER KIRSTIN ELDRIDGE AT [facility] THE [place] ADULT CF UNIT HAS CLOSED. LAUREN STATED THAT SHE WAS NOT AWARE THAT THE LL UNIT HAD CLOSED AND THAT IF PATIENT DECOMPENSATED THAT IT WOULD BE [facility] THAT PATIENT WOULD NEED TO GO TO . STATED SHE WOULD CONTACT DR KATZ MANAGER SOLUTION REGARDING HIS OPINION IF PATIENT NEEDED TRANSFERRED FOR SPECIALIZED CARE.
--- NOTE | 2018-06-20 13:30 | NUR ---
ASSISTED PATIENT TO GET OUT FROM BED AND USED THE BATHROOM. AND GOT BACK ON BED. SAFETY MEASURES ARE IN PLACE. INSTRUCTED THE PT TO USE THE CALL LIGHT FOR ANY ASSISTANCE.
--- NOTE | 2018-06-20 14:41 | NUR ---
CM NOTE 1115 I ATTEMPTED TO MAKE AN OUTPATIENT FOLLOW UP APPOINTMENT WITH [facility] (PCP[facility] PH# [phone]. PER GURPREET OF [facility], THEY ARE NOT ALLOWED TO MAKE APPOINTMENTS FOR PATIENTS THROUGH A THIRD DEMOCRAT AND THE PATIENT HAS TO BE THE ONE TO CALL THE CLINIC TO SCHEDULE AN APPOINTMENT. SHE ALSO SAID THAT THE PATIENT CAN SEE DR. [facility] A NEW PATIENT ON TUESDAYS AND THURSDAYS FROM 9:00AM-10:00AM OR FROM 2:00 PM-5:00 PM, WEDNESDAYS FROM 9:00 AM-10:00AM AT THE CLINIC AT [address] [place] [address]. I GAVE THE PATIENT A COPY OF [facility] SCHEDULE AND ADDRESS AND INFORMED HIM THAT HE HAS TO CALL THE CLINIC TO SCHEDULE FOR HIS APPOINTMENT PER THEIR POLICY. I EMPHASIZED TO HIM THE IMPORTANCE OF FOLLOWING UP WITH PCP POST DISCHARGE. THE PATIENT VERBALIZED UNDERSTANDING AND HE SAID THAT HE WILL CALL TO SCHEDULE HIS OUTPATIENT FOLLOW UP.
--- NOTE | 2018-06-20 14:42 | NUR ---
1430 RECEIVED CALL FROM LAUREN [facility] AND SHE SAID THAT SHE SPOKE WITH DR KATZ AND HE STATED THAT PATIENT DOES NOT REQUIRE HIGHER LEVEL OF CARE AT THIS TIME AND THAT PATIENTS CONDITION IS IMPROVING AND MOST LIKELY WILL DISCHARGE TO HOME IN A FEW DAYS. SPOKE WITH PATIENT AND INFORMED HIM OF MY CONVERSATION WITH LAUREN AND THAT PER DR KATZ TRANSFER IS NOT NEEDED AT THIS TIME. PER PATIENT "THEN I MIGHT WELL GO HOME THERE'S NOTHING BEING DONE HERE THAT I CAN'T DO AT HOME". PATIENT DID SAY "I'M NOT TRYING TO BE DIFFICULT AND I DON'T BLAME ANYONE HERE IT'S JUST THAT THEY KNOW ME SO WELL AT [facility] AND THAT'S WHERE I WANT TO BE". ACKNOWLEDGED PATIENTS CONCERN AND THAT IT IS UNDERSTOOD WHY HE WANTS TO GO TO [facility]. PROVIDED PT WITH MY CARD AND ENCOURAGED HIM TO CALL IF HE HAS ANY OTHER CONCERNS.
--- NOTE | 2018-06-20 14:43 | NUR ---
PT C/O OF PAIN LEVEL OF 8. MEDICATED.
[2018-06-20 16:00] VITALS: BP 112/64
--- NOTE | 2018-06-20 16:45 | NUR ---
PT SAID THAT HE WANTS TO TALK TO THE DR AND FIND OUT IF HE CAN BE DISCHARGE TODAY.
--- NOTE | 2018-06-20 16:53 | NUR ---
CHARGE NURSE CALLED AND SPOKE TO DR MAHONEY, PER , HE DOES NOT RECOMMEND PT TO BE DISCHARGED TODAY DUE TO HIS CONDITION AND PATIENT NEEDS TO BE CLOSELY MONITOR. INFORMED PATIENT ON ABOVE STATEMENT.
--- NOTE | 2018-06-20 17:00 | NUR ---
PATIENT DECIDED TO LEFT AGAINST MEDICAL ADVICE FROM DR MAHONEY. INFORMED PATIENT'S DECISION TO MUTUAL FUND ACCOUNTANT.
--- NOTE | 2018-06-20 17:10 | NUR ---
CAPTAIN WAITER/WAITRESS IS TALKING TO PATIENT AT BEDSIDE.
--- NOTE | 2018-06-20 17:30 | NUR ---
PATIENT IS INSISTED TO LEFT AGAINST MEDICAL ADVICE. PT SIGNED THE AMA DOCUMENT AND SAID "I DON'T WANT TO STAY HERE FOR ANTIBIOTIC. I TOOK ALL MY ANTIBIOTIC DURING MY LAST STAY IN THE HOSPITAL. IT'S USELESS TO TAKE THEM ANYWAY." D/C IV AND IV CANNULA INTACT. NO BLEEDING AT IV SITE. REMOVED TELE MONITOR FROM PT. REMOVED ALL ARMBANDS. PATIENT CHECKED ALL CABINETS AND STORAGE. PATIENT TOOK ALL HIS BELONGINGS. PATIENT LEFT AT THIS TIME.
[2018-06-21] MEDS ORDERED: INSULIN LANTUS 100 UNITS/ML 10 ML VIAL SUBQ SCH (09:00)
== END 2018-06-20 17:30 | disposition left against medical advice (07) | DRG 720 ==
LOC: MED 15:49 → MIC 18:35 → MTU 06-19 18:50
PROVIDERS: ADMIT Hospitalist; ATTEND Hospitalist
DX: A41.9 Sepsis, unspecified organism (principal); J96.21 Acute and chronic respiratory failure with hypoxia; E11.00 Type 2 diabetes mellitus with hyperosmolarity without nonketotic hyperglycemic-hyperosmolar coma (NKHHC); Z99.81 Dependence on supplemental oxygen; J18.9 Pneumonia, unspecified organism; E84.9 Cystic fibrosis, unspecified; E86.0 Dehydration; E87.6 Hypokalemia; F17.200 Nicotine dependence, unspecified, uncomplicated; E83.42 Hypomagnesemia; E11.65 Type 2 diabetes mellitus with hyperglycemia; E83.39 Other disorders of phosphorus metabolism; E87.1 Hypo-osmolality and hyponatremia; K21.9 Gastro-esophageal reflux disease without esophagitis; F32.9 Major depressive disorder, single episode, unspecified; F41.9 Anxiety disorder, unspecified; Z53.21 Procedure and treatment not carried out due to patient leaving prior to being seen by health care provider
CPT/HCPCS: 36415; 36600; 71045; 80048; 80053; 81003; 82803; 82948; 83036; 83605; 83735; 83880; 84100; 84443; 84484; 85025; 85610; 85730; 87040; 87081; 87086; 87804; 93005; 94640; 96372; 96374; 96375; 99291; J1644; J1815; J1885; J1956; J2270; J2405; J2543; J3475; J3480; J7030; J7613; J7620; J7626; J7644; Q0092